=== PATIENT | female | born 1955 | race Hispanic/Latino ===

== ENCOUNTER 2017-07-19 21:40 | Observation (INO) | payer SELFPAY ==
--- NOTE | 2017-07-19 22:10 | RAD ---
FRONTAL VIEW CHEST: INDICATIONS: Chest pain. COMPARISON: 07/18/2012 FINDINGS: There is no lobar consolidation, effusion, or discrete pneumothorax. No free air. Linear density in the right perihilar region may relate to volume loss or scar. The chest is otherwise similar in waqas earance. IMPRESSION: 1. No lobar consolidation. 2. Additional details as described above. POS: [facility]
[2017-07-19 22:15] LABS: #Lymphocytes 2.9 thou/uL (1.20-3.40); #Monocytes 0.5 thou/uL (0.11-0.59); #Neutrophils 5.1 thou/uL (1.40-6.50); %Basophils 0.3 % (0.0-1.0); %Eosinophils 0.2 % (0.0-10.0); %Lymphocytes 33.9 % (21.0-51.0); %Monocytes 5.9 % (0.0-10.0); %Neutrophils 59.7 % (42.0-75.0); Hemoglobin 11.7 g/dL (12.0-16.0); Mean Corpuscular Hemoglobin 31.9 pg (27.0-31.0); Mean Corpuscular Volume 93.6 fl (81.0-99.0); Mean Platelet Volume 7.1 fL (7.4-10.4); Platelet Count 287 thou/uL (130-400); RBC Distribution Width 13.1 % (11.5-14.5); Red Blood Cell (RBC) Count 3.67 mill/uL (4.20-5.40); White Blood Cell (WBC) Count 8.6 thou/uL (4.8-10.8)
[2017-07-19 22:36] LABS: ALT (SGPT) 11 U/L (8-55); AST (SGOT) 10 U/L (5-34); Albumin 3.6 g/dL (3.4-4.8); Alkaline Phosphatase 85 U/L (40-150); Anion Gap 11 mmol/L (10-20); BUN (Urea Nitrogen) 14 mg/dL (9.8-20.1); Bilirubin, Total 0.2 mg/dL (0.2-1.2); CK (CPK) 28 U/L (29-168); Calc. Creatinine Clearance 0 mL/min (70-130); Carbon Dioxide 24 mmol/L (23-31); Chloride 108 mmol/L (98-107); Estimated GFR-MDRD 74; Globulin 3.1 g/dL (2.4-3.5); Glucose 93 mg/dL (80-115); Lipase 37 U/L (8-78); Potassium 3.7 mmol/L (3.5-5.1); Protein, Total 6.7 g/dL (6.0-8.3); Sodium 139 mmol/L (136-145)
[2017-07-19 22:39] LABS: CKMB 0.3 ng/mL (0-6.6); Troponin I Less than 0.010 ng/mL (< 0.028)
[2017-07-19] MEDS ORDERED: Ondansetron ODT 4 MG TAB ONE (22:51)
[2017-07-19] MEDS ORDERED: Morphine 4 MG/ML VIAL ONE (22:51)
--- NOTE | 2017-07-19 22:56 | CT ---
BRAIN CT WITHOUT CONTRAST: HISTORY: Headache. COMPARISON: 09/12/2013 TECHNIQUE: A noncontrast head CT is performed from the skull base to the skull vertex. FINDINGS: No parenchymal hemorrhage. No extraaxial hematoma. No midline shift. The basilar cisterns are isidro nt. Age appropriate atrophy. Chronic small vessel ischemic changes of the white matter are identifi ed. The ventricles and sulci are patent and symmetric. The calvarium is intact. Left maxillary sin us disease. Adequate aeration of the mastoid air cells. IMPRESSION: Chronic small vessel ischemic changes of the white matter. No acute intracranial process. POS: [facility]
[2017-07-20] MEDS ORDERED: Ondansetron ODT 4 MG TAB SL PRN (01:08)
[2017-07-20] MEDS ORDERED: Ondansetron HCl/PF 4 MG/2 ML Vial IVP PRN (01:08)
[2017-07-20] MEDS ORDERED: Acetaminophen 325 MG TAB PO PRN ×2 (01:08→01:33)
[2017-07-20] MEDS ORDERED: Senokot 8.6 MG TAB PO PRN (01:33)
[2017-07-20] MEDS ORDERED: Loperamide HCl 2 MG CAP PO PRN (01:33)
[2017-07-20] MEDS ORDERED: HYDROcodone/Acetaminophen 5/325 mg Tablet PO PRN (01:33)
[2017-07-20] MEDS ORDERED: Nitroglycerin 0.4 MG TAB (25 Tab Bottle) PO PRN (01:33)
[2017-07-20] MEDS ORDERED: Zolpidem Tartrate 5 MG TAB PO PRN (01:33)
[2017-07-20] MEDS ORDERED: Milk Of Magnesia 30 ML UDCUP PO PRN (01:33)
[2017-07-20] MEDS ORDERED: Mag-Al 1200 mg/1200 mg/30 ML UDCUP PO PRN (01:33)
[2017-07-20] MEDS ORDERED: Aspirin 325 MG TAB PO SCH ×2 (01:45→08:00)
--- NOTE | 2017-07-20 02:39 | SS ---
PRIMARY CARE PHYSICIAN: City call admission. REASON FOR ADMISSION: Chest pain. HISTORY OF PRESENT ILLNESS: A 62-year-old female who came to emergency room with complaint of chest pain for the last 2 days. Chest pain started on intermittent. There was no specific aggravating or relieving factor. She describes chest pain, left-sided as well as substernal without any radiation, without any association of nausea, vomiting, diaphoresis. She denies any shortness of breath, but she reports that with fast walking she gets out of breath. She denies any palpitation, dizziness, or syncope. She denies any orthopnea, PND, or leg swelling. She denies any cough. She reports that a week ago, she was having fever but it subsided by itself. She denies any UTI symptoms. She denies any constipation, diarrhea, melena, or hematochezia. With these symptoms, she came to emergency room. In the emergency room, routine blood test was normal. Her D-dimer was also negative and her cardiac enzymes were negative. Her BNP is also normal. Her electrocardiogram was not showing any acute ischemic changes. Her chest x-ray was also normal. The patient had last stress test done in 2012 at that time it was normal. Since then, the patient never had any cardiac workup. In the emergency room, patient also reported that she was feeling confused and that is why CT brain was done that was unremarkable. When I saw this patient in the emergency room at that time, patient does not appear to be confused at all. She was providing good history. She did not have any focal motor or sensory symptoms. ALLERGIES: No known drug allergy. CURRENT HOME MEDICATIONS: Gabapentin 600 mg p.o. 3 times daily, aspirin 81 mg p.o. daily, ranitidine 300 mg daily, omeprazole 20 mg daily, and ropinirole 0.25 mg p.o. daily. PAST MEDICAL HISTORY: Gastroesophageal reflux disease, irritable bowel syndrome , fibromyalgia, chronic low back pain, history of rheumatoid arthritis, restless leg syndrome, migraine headache, and obesity. PAST SURGICAL HISTORY: Appendicectomy, cholecystectomy, partial hysterectomy, and tonsillectomy. PAST PSYCHIATRIC HISTORY: Reviewed and negative. SOCIAL HISTORY: The patient lives at home. She smokes about half pack per day. She denies any alcohol or other illicit drug abuse. FAMILY HISTORY: No strong family history of premature coronary artery disease, stroke, or cancer. EMERGENCY ROOM COURSE: The patient is given Zofran one tablet sublingually x2, aspirin 243 mg and morphine 4 mg. REVIEW OF SYSTEMS: Constitutional: Weight loss or gain, ability to conduct usual activities. Skin: Rash, itching. Eyes: Double vision, pain. ENT/Mouth : Nose bleeding, neck stiffness, pain, tenderness. Cardiovascular: Palpitations, dyspnea on exertion, orthopnea. Respiratory: Shortness of breath , wheezing, cough, hemoptysis, fever or night sweats. Gastrointestinal: Poor appetite, abdominal pain, heartburn, nausea, vomiting, constipation, or diarrhea. Genitourinary: Urgency, frequency, dysuria, nocturia. Musculoskeletal: Pain, swelling. Neurologic/Psychiatric: Anxiety, depression. Allergy/Immunologic: Skin rash, bleeding tendency. Please see my HPI for pertinent positive and negative. All other review of systems reviewed and negative except as mentioned in the HPI. PHYSICAL EXAMINATION: VITAL SIGNS: On arrival, blood pressure 125/76, pulse 87, respiratory rate 20, temperature 97.9, saturation 95% on room air, and weight 83.9 kilograms. GENERAL: The patient is currently alert, awake, no obvious acute distress. HEAD: Normocephalic, atraumatic. EYES: Pupils round, reactive to light. Extraocular muscle intact. ENT: Oropharynx within normal limits. Moist mucous membranes. No oral lesions , no pharyngeal erythema, no exudate. NECK: Supple, no thyromegaly, no carotid bruit. No jugular venous distention. LUNGS: Clear to auscultation without any rhonchi or rales. CARDIAC: S1, S2 regular. No murmur, no gallop, no rub. ABDOMEN: Soft, bowel sounds present, nontender, nondistended. No organomegaly , no mass, no suprapubic tenderness. BACK: Unremarkable. No CVA tenderness. EXTREMITIES: Upper extremities: Passive movement of all joints are normal. Lower extremities: No edema. Good peripheral pulsation, no calf tenderness. SKIN: No skin rash. HEMATOLOGIC: No lymphadenopathy. PSYCHIATRIC: Normal affect. NEUROLOGIC: Nonfocal examination. SIGNIFICANT LABORATORY DATA: CBC: WBC 8.6, hemoglobin 11.7, platelet 287. D- dimer 0.32. BMP: Sodium 139, potassium 3.7, chloride 108, carbon dioxide 24, anion gap 11, BUN 14, creatinine 0.79, glucose 93, calcium 9.0, magnesium 2.0. LFT: AST 10, ALT 11, alkaline phosphatase 85, albumin 3.6, lipase 37. CK 28, CK-MB 0.3, troponin I less than 0.010, BNP 16.1. EKG showing normal sinus rhythm without any acute ischemic changes. CT brain based on my review, no acute intracranial process. Chest x-ray based on my review, no acute cardiopulmonary process. ASSESSMENT AND PLAN/IMPRESSION: 1. Acute and recurrent chest pain. The patient's chest pain description is atypical, most likely patient's chest pain is non-anginal and noncardiac, suspecting from gastroesophageal reflux disease versus costochondritis. At this point, patient is over concerned about her cardiac etiology and that is why for peace of mind, we will perform pharmacological stress test. We will do serial cardiac enzymes x2 to rule out acute coronary syndrome. We will check lipid profile for risk stratification. Meanwhile, we will continue with aspirin 325 mg p.o. daily, nitroglycerin p.r.n. basis and we will monitor on telemetry floor. Her D-dimer is negative, and the patient's clinical presentation is not consistent with thromboembolic disorder. No need of doing more investigation in that case. Her BNP is normal. We will treat with Pepcid 20 mg p.o. b.i.d. If stress test is negative, then this patient can be discharged home later on today. 2. Chronic low back pain with history of ruptured disk. Continue gabapentin 600 mg 3 times daily and pain control with Tylenol and Piffard p.r.n. basis. 3. Gastroesophageal reflux disease. Continue Pepcid 20 mg p.o. b.i.d. 4. Restless leg syndrome. Continue ropinirole 0.25 mg p.o. daily. 5. Normocytic normochromic anemia. Continue multivitamin 1 tablet p.o. daily. 6. History of fibromyalgia, osteoarthritis, and migraine headache. Continue symptomatic treatment. 7. Deep venous thrombosis prophylaxis not needed because we are expecting discharge in 24 hours. 8. Gastrointestinal prophylaxis, Pepcid 20 mg p.o. b.i.d. CODE STATUS: The patient is FULL CODE. The patient does not have any surrogate decision maker. Disposition plan based on stress test result. DATE OF ADMISSION: The patient is admitted on 07/20/2017 at after midnight. DATE OF DISCHARGE: 07/20/17 PRIMARY DISCHARGE DIAGNOSIS: Chest pain, ruled out acute coronary syndrome. SECONDARY DISCHARGE DIAGNOSES: Osteoarthritis, gastroesophageal reflux disease , restless leg syndrome, fibromyalgia, chronic low back pain with ruptured disk , tobacco abuse disorder. PRIMARY PROCEDURES/OPERATIONS: None. RADIOLOGICAL INVESTIGATION: Chest x-ray normal. CT brain negative. SIGNIFICANT LABORATORY DATA: Please see above. CONTRAINDICATIONS: None. CODE STATUS: FULL CODE. INPATIENT [employer]ER: None. ALLERGIES: No known drug allergy. DISCHARGE PLAN: Post hospital, the patient will follow up with primary care physician in 1 or 2 weeks. HOSPITAL COURSE: The patient is admitted for chest pain. Her chest pain description appears to be noncardiac, nonanginal. We are doing pharmacological stress test for benefit of doubt. Once stress test is done and if it is negative, then we will consider discharging her home on her home medication. Lipid profile is done and result is pending. Overall, patient is medically stable. stress test is negative pt was admitted and discharged on same day [facility]
[2017-07-20 03:18] VITALS: BMI 47.8
[2017-07-20 03:24] LABS: Troponin I Less than 0.010 ng/mL (< 0.028)
[2017-07-20 06:01] LABS: Troponin I Less than 0.010 ng/mL (< 0.028)
[2017-07-20 06:06] LABS: Cardiac Risk 3.4 (Less than 4.5)
[2017-07-20] MEDS ORDERED: Famotidine 20 MG TAB PO SCH (09:00)
[2017-07-20] MEDS ORDERED: Multivitamin W/ Minerals 1 TAB PO SCH (09:00)
--- NOTE | 2017-07-20 11:17 | NM ---
NUCLEAR MEDICINE CARDIAC STRESS WITH EF AND WALL MOTION: HISTORY: Chest pain. COMPARISON: None. TECHNIQUE: Stress-only imaging was performed. The patient is administered 32 mCi of Technetium 99m sestamibi Cardiac gating is performed. FINDINGS: Homogeneous distribution of the radiotracer in the left ventricle. End-diastolic volume is 50 mL. End-systolic volume is 19 mL. CARDIAC GATING: Normal motion and thickening. Ejection fraction is 62%. IMPRESSION: Homogeneous distribution of radiotracer. 62% ejection fraction. POS: [facility]
[2017-07-20] MEDS ORDERED: ADENOSINE 60 MG/20 ML VIAL ONE (11:48)
[2017-07-20 12:03] VITALS: BP 125/71; TEMP 97.5
--- NOTE | 2017-07-21 00:21 | DIS ---
DATE OF ADMISSION: 07/20/2017 DATE OF DISCHARGE: 07/20/2017 PRIMARY CARE PROVIDER: dAen Harmon MD DISCHARGE DIAGNOSIS: Chest pain. HOSPITAL COURSE: Ms. Bustillo is a pleasant 62-year-old lady who was admitted to [facility] on 07/20/2017 for chest pain. Please refer to history and physical note dictated by Dr Ariane Montanez for further details. She had a low D-dimer. She also had a nuclear stress test, which alexy wed homogeneous distribution of radiotracer. Left ventricular ejection fraction was 62%. She also reports that she had a chronic headache. Noncontrast CT scan of the brain at the time of ad mission, did not show any acute intracranial process. I advised her to follow up with her primary ca re provider for further management. I am giving her a prescription for tramadol 50 mg 3 times a day as needed, 15 doses to be dispensed. No change was made to her preadmission home medications otherwi se. DISCHARGE DESTINATION: Home. Please note that during this hospitalization, Ms. Bustillo had triglycerides 175, cholesterol 157, LDL cholesterol 76, HDL cholesterol 46 and creatinine 0.79.
--- NOTE | 2017-07-29 11:55 | STRESS ---
Acquisition Time: 2017-07-20 08:32:38 Total Exercise Time: 00:04:00 Test Indications: CHEST PAIN Medications: Protocol: ADENOSINE Max HR: 112 BPM 71% of Pred: 157 BPM Max BP: 108/066 mmHG Max Work Load: 1.0 METS RESTING ECG: NORMAL SINUS RHYTHM SYMPTOMS: SHORTNESS OF BREATH NORMAL BP RESPONSE ECTOPY: NONE ECG STRESS: NO SIGNIFICANT CHANGES INTERPRETATION: AWAIT NUCLEAR IMAGES FOR DEFINITIVE DIAGNOSIS Confirmed by DANIEL LAM ([id number]), state editor [place] ([id number]) on 07/29/2017 11:55:11 AM Referred By: MD Mima MERIDA Confirmed By:DANIEL LAM
== END 2017-07-20 15:17 | disposition home or self-care (01) ==
LOC: ERS 21:40 → 2SW 07-20 00:23
PROVIDERS: ADMIT Internal Medicine; ATTEND Internal Medicine
DX: R07.89 Other chest pain (principal); K21.9 Gastro-esophageal reflux disease without esophagitis; G25.81 Restless legs syndrome; D64.9 Anemia, unspecified; M19.90 Unspecified osteoarthritis, unspecified site; M79.7 Fibromyalgia; G89.29 Other chronic pain; M54.2 Cervicalgia; G43.909 Migraine, unspecified, not intractable, without status migrainosus; F17.210 Nicotine dependence, cigarettes, uncomplicated; Z79.82 Long term (current) use of aspirin; Z79.899 Other long term (current) drug therapy
CPT/HCPCS: 36415; 70450; 71045; 78452; 80053; 80061; 82550; 82553; 83690; 83735; 83880; 84484; 85025; 85379; 90471; 90732; 93005; 93017; 96374; A9500; G0009; G0378; J0153; J2270; Q0162